=== PATIENT | male | born 1990 | race African-American/Black ===

== ENCOUNTER 2020-09-15 06:24 | Emergency (ER) | payer OTHER ==
[~2020-09-15] VITALS: Ht 175.3 cm; Wt 93.0 kg
[2020-09-15] MEDS ORDERED: PREVACID30 MG PO (11:09)
[2020-09-15] MEDS ORDERED: MAALOX MAXIMUM355 ML PO (11:09)
[2020-09-15] MEDS ORDERED: LEVSIN/SL0.125 MG PO (11:09)
[2020-09-15] MEDS ORDERED: PEPCID AC20 MG PO (11:09)
== END 2020-09-15 11:40 | disposition home or self-care (01) ==
LOC: ER 06:24
DX: K29.60 Other gastritis without bleeding (principal)